=== PATIENT | male | born 1975 | race Caucasian/White ===

== ENCOUNTER 2018-05-23 08:00 | Emergency (ER) | payer OTHER ==
[~2018-05-23] VITALS: Ht 170.2 cm; Wt 96.2 kg
== END 2018-05-23 10:49 | disposition home or self-care (01) ==
LOC: ER 08:00 → EDBD 08:26 → ER 10:49
DX: J06.9 Acute upper respiratory infection, unspecified (principal)

== ENCOUNTER 2022-04-05 08:14 | Outpatient (CLI) | payer OTHER | END 2022-04-05 08:18 | disposition home or self-care (01) | LOC: RX STUDY 08:14 | PROVIDERS: ATTEND Otolaryngology Plastic Surgery within the Head & Neck | DX: R13.10 Dysphagia, unspecified (principal) ==